=== PATIENT | female | born 1955 | race Caucasian/White ===

== ENCOUNTER 2019-04-15 06:16 | Inpatient (IN) ==
--- NOTE | 2019-03-17 10:15 | Anesthesiology Consultation ---
Date of Service March 17, 2019 Assessment & Plan (1) Encounter for pre-operative examination: Mild aortic stenosis: (MG 11.6mmhg, ERIKA 1.52cm2) per 12/2018 ECHO Chart Review Chart Review: Acceptable Risk for Surgery and Patient seen in Pre Admission Testing Teaching & Discussion Pre-Anesthesia Teaching/Discussion Notes: Instructed NPO after midnight before surgery,except medications with 15 cc of water. Medication instructions provided according to the PAT guidelines. History Surgery Operation Date: 04/15/19 12:30 Proposed Procedures p Left Total Knee Arthroplasty - Abdiaziz Gunn MD Height/Weight Height: 5 ft 6 in Weight: 100.9 kg Allergies Allergy/AdvReac Type Severity Reaction Status Date / Time No Known Allergies Allergy Verified 03/14/19 09:06 Medications Home Medications Medication Instructions Recorded Confirmed Last Taken celecoxib [Celebrex] 200 mg PO QAM 03/14/19 03/14/19 Unknown multivitamin 1 tab PO QAM 03/14/19 03/14/19 Unknown Past Medical History Medical History Anemia HX BLOOD TRANSFUSION 11/2017 (NO DEFINITIVE ETIOLOGY/ NEGATIVE COLONOSCOPY/SUSPECTED NSAID RELATED) Aortic stenosis "Mild" per 12/2018 ECHO (MG 11.6mmhg, ERIKA 1.52cm2) Obesity Osteoarthritis Exercise / Class Metabolic Activity III < 4 Walking/Shop/Light housework Past Surgical History Surgical History History of colonoscopy History of tonsillectomy History of tooth extraction History of tubal ligation Past Anesthesia History No Hx of Anesthesia Complications and No Family Hx of Anesthesia Complications History of PONV No Hx of PONV and No Hx of Motion Sickness Social History Smoking Status: Former smoker tobacco type: cigarettes Smoking cigarettes per day: QUIT 5+ YEARS AGO Do You Dip or Chew Tobacco: No Hx Alcohol Use: Yes alcohol intake frequency: holidays/special occasions only Hx Substance Use: Yes substance use type: does not use Review of Systems Patient denies chest pain, shortness of breath, reflux, cough, wheezing, palpitations. Physical Exam Vital Signs VITALS BP 123/81 P 71 TEMP 97.5 SP02 96%RA RESP 18 PHYSICAL Full neck and c-spine range of motion. Full TMJ range of motion. TMD 2.5 finger breaths Mallampati Score 3 Dentition: full upper dentures, lower missing molars Lungs: clear throughout to auscultation Cardiac: regular rate and rhythm, I/ systolic murmur Spine: normal Carotid arteries: negative bruit Extremities: no edema Testing Laboratory Results 03/17/19 10:48 03/17/19 10:48 PT 9.4 Seconds (9.0-12.0) 03/17/19 10:48 INR 0.9 (0.9-1.1) 03/17/19 10:48 APTT 24.9 Seconds (21.0-31.0) 03/17/19 10:48 Blood Type A Negative 03/17/19 10:48 Antibody Screen NEGATIVE 03/17/19 10:48 Electrocardiogram Date: 03/17/19 SB with sinus arrhythmia at 58bpm. Otherwise "normal." Chest X-Ray Date: 03/17/19 Findings: + NAD Echocardiogram Date: 12/19/18 LVEF 55-60%. Mild aortic stenosis (MG 11.6mmhg, ERIKA 1.52cm2). Mild LAD. Severe mitral annular calcification. Compared to prior study 11/2017, there is "no signi ficant change" per ECHO report.
--- NOTE | 2019-03-17 10:18 | PAT Medication Instructions ---
Medication Instructions Date of Service March 17, 2019 Home Medications celecoxib [Celebrex] 200 mg PO QAM multivitamin 1 tab PO QAM ASK your surgeon for instructions celecoxib [Celebrex] 200 mg PO QAM DO NOT take the morning of surgery multivitamin 1 tab PO QAM Other Notes If you have any questions please call us at [phone] or [phone] or [phone] or [phone]
--- NOTE | 2019-03-17 11:13 | XRay Report ---
XR chest Pre-admission PA/Lat HISTORY: 64 years-old Female pat preoperative exam. No acute chest complaints COMPARISON: None available TECHNIQUE: PA and lateral views of the chest FINDINGS: Cardiomediastinal and hilar silhouettes are within normal limits. No pneumothorax, pleural effusion, focal airspace consolidation or overt pulmonary edema. Degenerative changes of the shoulders and spin e. IMPRESSION: No acute process. The above report was generated using voice recognition software. It may contain grammatical, syntax o r spelling errors. Electronically signed by: Solo Pisano M.D. 03/17/2019 11:12 AM
[2019-03-17 13:20] LABS: Basophils # (auto) 0.03 K/uL (0-0.2); Basophils % (auto) 0.4 %; Eosinophils # (auto) 0.16 K/uL (0-0.5); Eosinophils % (auto) 2.2 %; Hematocrit (blood only) 35.5 % (37-47); Hemoglobin 11.7 g/dL (12.0-16.0); Immature Granulocytes # (auto) 0.01 K/uL (0.00-0.02); Immature Granulocytes % (auto) 0.1 %; Lymphocytes # (auto) 2.15 K/uL (1.2-3.4); Lymphocytes % (auto) 29.5 %; Mean Corpuscular Volume 92.2 fL (80-100); Mean Platelet Volume 10.2 fL (7.4-10.4); Monocytes # (auto) 0.58 K/uL (0.11-0.59); Monocytes % (auto) 7.9 %; Neutrophils # (auto) 4.37 K/uL (1.4-6.5); Neutrophils % (auto) 59.9 %; Platelet Count 350 K/uL (130-400); RDW Coefficient of Variation 14.6 % (11.5-14.5); RDW Standard Deviation 49.5 fL (36.4-46.3); Red Blood Count 3.85 M/uL (4.2-5.4)
[2019-03-17 13:28] LABS: BUN Creatinine Ratio 30.2 (10-20); Calcium 9.1 mg/dl (8.5-10.1); Creatinine Clr Calc Pharmacy 100.4 ml/min; Est GFR (African American) 106.9; Est GFR (Non-African American) 92.2; Potassium 4.2 mmol/L (3.5-5.1)
[2019-03-17 13:31] LABS: INR 0.9 (0.9-1.1); Partial Thromboplastin Ratio 0.9; Partial Thromboplastin Time 24.9 Seconds (21.0-31.0); Prothrombin Time 9.4 Seconds (9.0-12.0)
--- NOTE | 2019-04-12 19:01 | History and Physical Report ---
DATE OF ADMISSION: 04/15/2019 CHIEF COMPLAINT: Left knee pain and discomfort. HISTORY OF PRESENT ILLNESS: The patient is a 64-year-old white female who works for [employer] who presents for surgical treatment of her left knee. She has a history of left knee pain and discomfort that has gradually gotten worse over time. She has seen my partner Dr. Griffith in the past and had several injections which provided some temporary relief only. Most of the pain is in the medial side of the knee. The more she walks, the more it hurts. She has tried to put off surgery as long as possible, but really affecting her lifestyle and she feels she needs to go ahead and get her knee fixed. She takes Celebrex with minimal relief. She has nighttime pain. PAST MEDICAL HISTORY: 1. Heart murmur. 2. Mild obesity, BMI 36. PAST SURGICAL HISTORY: None. ALLERGIES: None. CURRENT MEDICATIONS: Celebrex. SOCIAL HISTORY: A 64-year-old female. She works for [employer]. She does some accounting work. No significant smoking or alcohol intake. FAMILY HISTORY: Noncontributory. REVIEW OF HISTORY: Negative for diabetes, neurologic problem, vascular problem, bleeding disorders. No chest pain or shortness of breath. No history of DVT or PE. No known bleeding problems. PHYSICAL EXAMINATION: GENERAL: Reveals a pleasant, middle-aged female. Looks to be in pretty good health. HEENT: Benign. NECK: Supple, no lymphadenopathy. LUNGS: Clear to auscultation. HEART: Regular rate and rhythm. ABDOMEN: Soft, nontender, nondistended. EXTREMITIES: Grossly neurovascularly intact except as follows. Examination of the left knee and leg reveals patient ambulates independently. She has got varus alignment to her knee with a varus thrust with weightbearing. She has got small knee effusions. She has got bony hypertrophy medially. Moderate soft tissue envelope. Range of motion is 5 degrees short of full extension to 120 degrees of flexion. There is no instability. No pain with hip motion. She is neurologically and vascularly intact. X-RAYS: X-rays of the left knee reviewed. Shows advanced left knee DJD. She has complete loss of medial joint space. She had osteophytes off the medial femoral condyle and medial tibial plateau. She does have significant tricompartmental disease. ASSESSMENT: A 64-year-old white female with advanced left knee degenerative joint disease. She has failed conservative treatment and would like to have her left knee replaced. PLAN: We will take her to the operating room and do a left total hip replacement. The risks and benefits of this procedure were explained to the patient include but not limited to DVT, PE, , infection, neurological injury, vascular injury, bleeding problem, pain, limited range of motion, stiffness, failure to relieve symptoms, incomplete relief of symptoms, need for further surgery in future, fracture, leg length inequality, nerve palsy, need for revision surgery, etc. The patient understands and desires to proceed. Informed consent was obtained. As far as discharge plan, she is hoping to be discharged to home with [facility] home health program.
[~2019-04-15 06:16] MED LIST: ACETAMINOPHEN 500 MG TAB PO SCH; BUPIVACAINE 0.5 % 5 MG/1 ML PF 10ML VIAL ONE; BUPIVACAINE LIPOSOME/PF 266 MG, BUPIVACAINE/EPINEPHRINE 50 ML, SODIUM CHLORIDE 0.9% 30 ... INFIL SCH; BUPIVACAINE/EPINEPHRINE 0.25% 1:200,000 30 ML VIAL ONE; CEFAZOLIN 2000MG 2,000 MG/15 ML SYR IV SCH; DEXAMETHASONE SOD INJ 4 MG/ML VIAL ONE; FAMOTIDINE 20 MG TAB PO SCH; GABAPENTIN 300 MG CAP PO SCH; LR 500ML BOLUS, THEN 15ML/HR IV SCH; LR 60ML/HR IV SCH; METOCLOPRAMIDE HCL 10 MG TABLET PO SCH; SCOPOLAMINE 1.5 MG TDSY TD SCH
[2019-04-15] MEDS ORDERED: TRANEXAMIC ACID 1,000 MG **IV Intra-op IV SCH (06:30)
--- NOTE | 2019-04-15 06:50 | History & Physical Bridge Note ---
Date of Service April 15, 2019 History & Physical Bridge Note I have examined the patient, reviewed the History & Physical and in the interval since the performance of the History & Physical I have noted the following changes of clinical significance: no changes noted Plan is for LEFT TOTAL KNEE ARTHROPLASTY.
[2019-04-15] MEDS ORDERED: fentaNYL citrate 100 MCG/2 ML VIAL ONE ×3 (08:56→11:00)
[2019-04-15] MEDS ORDERED: MIDAZOLAM HCL 1 MG/ML 2ML VIAL ONE ×2 (08:56→09:32)
[2019-04-15] MEDS ORDERED: SODIUM CHLORIDE 0.9% PF 50 ML VIAL ONE (09:10)
[2019-04-15] MEDS ORDERED: BUPIVACAINE LIPOSOME 1.3% 266 MG/20 ML VIAL ONE (09:10)
[2019-04-15] MEDS ORDERED: BACITRACIN INJ 50,000 UNIT VIAL ONE (09:10)
[2019-04-15] MEDS ORDERED: BUPIVACAINE 0.25% 30 ML VIAL ONE (09:12)
[2019-04-15] MEDS ORDERED: EPINEPHrine INJ 1 MG/ML AMP ONE (09:13)
[2019-04-15] MEDS ORDERED: ONDANSETRON INJ 2 MG/ML 2 ML VIAL IV PRN ×2 (09:24→12:04)
[2019-04-15] MEDS ORDERED: ePHEDrine sulfate 50 MG/ML AMP IV PRN (09:24)
[2019-04-15] MEDS ORDERED: fentaNYL citrate 100 MCG/2 ML VIAL IV PRN (09:24)
[2019-04-15] MEDS ORDERED: ATROPINE SULFATE 0.1 MG/ML 10ML SYR IV PRN (09:24)
[2019-04-15] MEDS ORDERED: LIDOCAINE HCL 2% 2 ML VIAL/AMP(20MG/ML) INFIL ONE (10:19)
[2019-04-15] MEDS ORDERED: LABETALOL HCL IV 5 MG/ML 20ML IV ONE (10:20)
[2019-04-15] MEDS ORDERED: ONDANSETRON INJ 2 MG/ML 2 ML VIAL ONE (10:20)
[2019-04-15] MEDS ORDERED: PROPOFOL IV EMULSION 10 MG/ML 20 ML VIAL IV ONE (10:20)
--- NOTE | 2019-04-15 11:04 | Post Operative Brief Note ---
PG Immediate Post Op with CF Date of Surgery April 15, 2019 Pre & Post Diagnosis Operation Date: 04/15/19 08:50 Pre-Op Diagnosis: LEFT KNEE DEGENERATIVE JOINT DISEASE W/KNEE PAIN Post-Op Diagnosis: LEFT KNEE DEGENERATIVE JOINT DISEASE W/KNEE PAIN Procedure Operation Date: 04/15/19 08:50 Actual Procedures p Left Total Knee Replacement(Left) - Abdiaziz Gunn MD Surgeon Abdiaziz Gunn MD Director [employer] Maria Teresa, PAC Estimated Blood Loss 50 Findings Consistent with Post-Op Diagnosis Fluids 1500 cc Specimens Specimen Description: Permanent specimen A: left knee bone and tissue Drains Mcpherson Catheter (16fr mcpherson catheter placed by Sasha Morel PA-C, without diffi culty; mcpherson demonstrates clear yellow urine. Output measured and recorded by anesthesia.) Anesthesia Type Spinal MAC Complications none Disposition Accompanied Patient To Recovery: No Disposition: Recovery Room
[2019-04-15] MEDS ORDERED: METOPROLOL TARTRATE 1 MG/ML VIAL IV ONE (11:05)
--- NOTE | 2019-04-15 11:22 | XRay Report ---
LEFT KNEE 2 VIEWS History: Left total knee arthroplasty. Degenerative arthritis. Postop. FINDINGS: The patient is status post a left total knee arthroplasty. The hardware is intact. No fract ure or dislocation. Skin fox in place. IMPRESSION: Left total knee arthroplasty. No evidence for hardware complication. Electronically signed by: Nathan Galloway M.D. 04/15/2019 11:21 AM
--- NOTE | 2019-04-15 11:46 | Anesthesiology Progress Note ---
Date of Service April 15, 2019 Anesthesia Post Procedure Vital Signs Vital Signs: Temp Pulse Resp BP Pulse Ox 04/15/19 11:45 36.5 C 73 15 150/70 H 94 04/15/19 11:30 67 15 140/76 95 04/15/19 11:20 79 15 140/88 99 04/15/19 11:10 36.8 C 82 15 160/90 H 98 04/15/19 06:43 36.6 C 81 20 191/91 H 95 Transfer of Care Handoff Completed per policy Notes Mental Status: alert / awake / arousable Patient Amnestic to Procedure: Yes Nausea / Vomiting: adequately controlled Pain: adequately controlled Airway Patency, RR, SpO2: stable & adequate BP & HR: stable & adequate Hydration State: stable & adequate Anesthetic Complications: no major complications apparent
[2019-04-15] MEDS ORDERED: BISACODYL 10 MG SUPP PR PRN (12:04)
[2019-04-15] MEDS ORDERED: MAGNESIUM HYDROXIDE SUSP 30 ML UDC PO PRN (12:04)
[2019-04-15] MEDS ORDERED: NALOXONE HCL 0.4 MG/1 ML VIAL/CARP IV PRN (12:04)
[2019-04-15] MEDS ORDERED: SODIUM CHLORIDE 0.9% 1000ML 1,000 ML IV SCH (12:04)
[2019-04-15] MEDS ORDERED: HYDROmorphone INJ 0.5 MG/0.5 ML SYR IV PRN (12:04)
[2019-04-15] MEDS ORDERED: METOCLOPRAMIDE HCL INJ 5 MG/ML 2 ML VIAL IV PRN (12:04)
[2019-04-15] MEDS ORDERED: ALUMINUM/MAGNESIUM SUSP 30 ML UDC PO PRN (12:04)
[2019-04-15] MEDS: KETOROLAC TROMETHAMINE 15 MG/ML VIAL IV SCH ×3 (13:07→23:24)
--- NOTE | 2019-04-15 14:05 | Progress Note ---
DATE: 04/15/2019 SUBJECTIVE: A 64-year-old white female postop from a left knee replacement. She is doing well. Feeling a little bit groggy. No chest pain or shortness of breath. No significant knee pain. Not feeling dizzy or lightheaded. OBJECTIVE: VITAL SIGNS: Temperature 36.4. Vital signs stable. GENERAL: Physical examination shows a pleasant, middle-aged female. She is lying in bed and talking to her . She is intermittently dozing off. LUNGS: Clear to auscultation. HEART: Regular rate and rhythm. ABDOMEN: Soft, nontender, nondistended. EXTREMITIES: Grossly neurovascularly intact except as follows: Examination of the left lower extremity reveals the leg to be well aligned. Dressing is clean, dry and intact. She can dorsiflex and plantarflex her foot appropriately. She got good distal pulse with brisk refill. X-RAYS: X-rays of the left knee from recovery room reviewed. It shows left cemented posterior stabilized total knee arthroplasty. Components looked to be in good position. No signs of problems. ASSESSMENT: A 64-year-old white female postop from a left knee replacement, doing well. Pain is controlled. She is neurologically intact. PLAN: 1. DVT prophylaxis including thigh-high TEDs, SCDs, and aspirin twice a day. 2. PT/OT. Weight bear as tolerated. Left total knee protocol. 3. Pain control, doing well with current pain regimen. 4. IV antibiotics x24 hours. 5. Disposition: Plan to discharge to home with some home health once adequately recovered and medically stable.
[2019-04-15] MEDS: ACETAMINOPHEN 500 MG TAB PO SCH ×2 (14:18→21:42)
[2019-04-15] MEDS: CHECK SCOPOLAMINE PATCH PLACEMENT SCH ×2 (16:04→23:25)
[2019-04-15] MEDS: ASCORBIC ACID 500 MG TAB PO SCH (16:21)
[2019-04-15] MEDS: FERROUS GLUCONATE 324 MG TAB PO SCH (16:21)
[2019-04-15] MEDS ORDERED: TRANEXAMIC ACID 1,000 MG in 0.9 % SODIUM CHLORIDE 100 ML IV SCH (17:00)
[2019-04-15] MEDS: CEFAZOLIN 2000MG 2,000 MG/15 ML SYR IV SCH (17:29)
[2019-04-15] MEDS: TRAMADOL HCL 50 MG TABLET PO PRN (17:41)
--- NOTE | 2019-04-15 21:24 | Operative Report ---
DATE OF OPERATION: 04/15/2019 SURGEON: Abdiaziz Gunn MD BURNING SUPERVISOR: JULIA Raygoza PREOPERATIVE DIAGNOSIS: Left knee degenerative joint disease. POSTOPERATIVE DIAGNOSIS: Left knee degenerative joint disease. PROCEDURE PERFORMED: Left cemented posterior stabilized total knee arthroplasty. COMPLICATIONS: None. ESTIMATED BLOOD LOSS: 50 mL. FLUID REPLACEMENT: 1500 mL crystalloid fluid replacement. ANESTHESIA: Spinal with adductor canal block. DRAINS: None. SPECIMENS: Left knee sent for pathology. TOURNIQUET TIME: 57 minutes at 300 mmHg. OPERATIVE INDICATIONS: The patient is a 64-year-old fairly active female who has had a several year history of increasing left knee pain and discomfort. It became less responsive to conservative treatment. She has tried to put off a knee replacement as long as possible. It is really affecting her quality of life and she elected to proceed with total knee arthroplasty. OPERATIVE FINDINGS: Operative findings revealed advanced left knee tricompartment DJD with extensive grade 4 changes in the medial femoral condyle and medial tibial plateau with eburnation and a fairly gross grade 4 changes in the patellofemoral as well as the lateral compartment. She had osteophytes in all 3 compartments. OPERATIVE IMPLANTS: Operative implants consists of 1. Biomet Vanguard size 65 left posterior stabilized femoral component. 2. Biomet size 71 tibial tray. 3. A 10 mm posterior stabilized polyethylene insert. 4. A 31 x 8 all poly patella. OPERATIVE PROCEDURE: The patient was taken to the operating room, identified and placed on the operating table in supine position. All contact areas were appropriately padded. IV antibiotics provided by anesthesia team. Spinal anesthetic and adductor canal block had been provided in the holding area. Roman catheter was placed in sterile fashion. Left thigh tourniquet was then placed and left lower extremity was then prepped and draped in usual sterile fashion. Left leg was elevated and exsanguinated with Esmarch and tourniquet was placed at 300 mmHg. An anterior approach to the left knee was then performed through a longitudinal incision centered over the patella. Sharp dissection was carried through subcutaneous tissue down to the level of the extensor mechanism. Medial parapatellar arthrotomy incision was made. Some subperiosteal dissection was carried out medially. Fat pad resected from beneath the patellar tendon. The lateral patellofemoral ligament was released. The patella was subluxated laterally and the knee was flexed. The osteophytes were taken off the distal femur. The ACL and PCL were then released from distal femur and the tibia subluxated anteriorly. The external tibial alignment jig was then placed in the anterior face of the tibia and adjusted to 14 mm medially. Proximal tibial cut was made to remove about a millimeter of bone from the most deficient aspect of the medial tibial plateau. Some osteophytes were taken off medial and posteromedially. Tibia sized to a size 71. Attention was then drawn to the femur. The distal femur was entered with a sharp drill bit. Intramedullary canal was suctioned. A left 5-degree valgus cutting guide was placed. Distal femoral cutting block was pinned in place. Distal femoral cut was made to take an additional 3 mm of bone off the distal femur. She did have a flexion contracture preoperatively. The femur was then sized to a size 65. We did downsize this slightly. The AP cutting block was pinned parallel to the epicondylar axis, which was 5 degrees of external rotation. The anterior cut, anterior chamfer cut, posterior cut, posterior chamfer cuts were made. Box cutting guide was placed and adjusted slightly lateral and box cut was made. The knee was flexed. The remnants of the medial and lateral menisci were excised. The osteophytes were taken off the posterior aspect of the femur. Trial femoral component was placed. Tibial tray was pinned in maximum external rotation and drill and stem punch were used to create defect in proximal tibia for the tibial tray. The knee was then trialed and a 10 mm insert fit most appropriately. There was some slight laxity, but I wanted to leave a little loose as she had a significant flexion contracture preoperatively. Attention was then drawn to the patella. The patella was cleaned of all soft tissues. Patella thickness measured 24 mm in thickness, cut down to about 13. It was sized to a size 31 patella. Lug holes were drilled for 31 patella. The lateral osteophyte was removed. Patella button was placed. Knee was taken through range of motion, patella tracked nicely with no thumbs test. Attention was then drawn toward placement of permanent components. All trial components were removed. Bone plug was placed in the distal femur to limit blood loss. A double batch of Palacos G cement was mixed. [employer] size 65 left posterior stabilized femoral component, size 71 tibial tray, 10 mm posterior stabilized polyethylene insert, and a 31 x 8 all poly patella then cemented in place. Knee was brought into full extension until cement hardened. A final cement check was then performed. Pericapsular tissues were injected with a total of 100 mL of combination of 20 mL of Exparel, 30 mL of normal saline, 50 mL 0.25% Marcaine with epinephrine. The patient did receive 1 gram of tranexamic acid. The tourniquet was let down for final tourniquet time of 57 minutes. Hemostasis was assured with use of electrocautery. Extensor mechanism was then closed with combination of #1 PDS suture and #1 Vicryl suture in a [id number] fashion. Extensor mechanism was checked and found to be intact. The subcutaneous tissue was then closed with #2 Dexon suture in a buried interrupted fashion. Skin was closed with skin fox. Leg was then cleaned, dried and a sterile dressing of Xeroform, 4 x 4, sterile cast padding and Paul bandage were applied. The patient then transferred to the recovery room in stable condition. The patient tolerated the procedure well with no complications. All needle and sponge counts were correct at the end of the operation. I attest to the content of the Intraoperative Record and any orders documented therein. Any exception s are noted below.
[2019-04-15] MEDS: ASPIRIN 81 MG ECTAB PO SCH (21:43)
[2019-04-15] MEDS: DOCUSATE SODIUM 100 MG CAP PO SCH (21:43)
[2019-04-15] MEDS: SENNA 8.6 MG TAB PO SCH (21:43)
[2019-04-16] MEDS: CEFAZOLIN 2000MG 2,000 MG/15 ML SYR IV SCH (02:49)
[2019-04-16] MEDS: ACETAMINOPHEN 500 MG TAB PO SCH ×3 (05:22→21:33)
[2019-04-16] MEDS: KETOROLAC TROMETHAMINE 15 MG/ML VIAL IV SCH ×4 (05:23→19:07)
[2019-04-16 07:07] LABS: Hematocrit (blood only) 30.8 % (37-47); Hemoglobin 10.2 g/dL (12.0-16.0); Mean Corpuscular Hgb Conc 33.1 g/dL (32-36); Mean Corpuscular Volume 91.7 fL (80-100); Mean Platelet Volume 9.5 fL (7.4-10.4); Platelet Count 317 K/uL (130-400); RDW Standard Deviation 46.6 fL (36.4-46.3); Red Blood Count 3.36 M/uL (4.2-5.4); White Blood Count 12.01 K/uL (4.8-10.8)
[2019-04-16 07:39] LABS: BUN Creatinine Ratio 21.8 (10-20); Calcium 8.9 mg/dl (8.5-10.1); Creatinine Clr Calc Pharmacy 86.5 ml/min; Est GFR (African American) 93.9; Potassium 4.2 mmol/L (3.5-5.1)
[2019-04-16] MEDS ORDERED: MULTIVITAMIN TAB PO SCH (09:00)
[2019-04-16] MEDS: ASPIRIN 81 MG ECTAB PO SCH ×2 (09:47→21:33)
[2019-04-16] MEDS: DOCUSATE SODIUM 100 MG CAP PO SCH ×2 (09:47→21:33)
[2019-04-16] MEDS: ASCORBIC ACID 500 MG TAB PO SCH ×2 (09:47→19:07)
[2019-04-16] MEDS: FERROUS GLUCONATE 324 MG TAB PO SCH ×2 (09:48→19:07)
[2019-04-16] MEDS: MULTIVITAMIN TAB PO SCH (09:48)
--- NOTE | 2019-04-16 09:57 | Anesthesiology Progress Note ---
Date of Service April 16, 2019 Anesthesia Post Procedure Vital Signs Vital Signs: Temp Pulse Pulse Resp BP Pulse Ox 04/16/19 07:29 36.6 C 61 18 147/77 H 94 04/16/19 03:03 36.5 C 60 14 124/64 96 04/15/19 23:13 36.5 C 59 L 14 126/62 97 04/15/19 19:09 36.4 C L 64 16 137/70 95 04/15/19 14:50 70 18 142/72 H 95 04/15/19 13:52 36.4 C L 66 17 146/70 H 97 04/15/19 12:57 36.4 C L 70 18 144/78 H 93 04/15/19 12:24 36.4 C L 69 71 H 133/77 94 04/15/19 11:50 36.7 C 72 16 121/72 94 04/15/19 11:45 36.5 C 73 15 150/70 H 94 04/15/19 11:30 67 15 140/76 95 04/15/19 11:20 79 15 140/88 99 04/15/19 11:10 36.8 C 82 15 160/90 H 98 Notes Mental Status: alert / awake / arousable and participated in evaluation Nausea / Vomiting: adequately controlled Pain: adequately controlled Airway Patency, RR, SpO2: stable & adequate BP & HR: stable & adequate Hydration State: stable & adequate Neuraxial Anesthesia: sensory block resolved
[2019-04-16] MEDS: TRAMADOL HCL 50 MG TABLET PO PRN ×2 (12:56→21:36)
--- NOTE | 2019-04-16 14:00 | Progress Note ---
DATE: 04/16/2019 SUBJECTIVE: A 64-year-old white female postop day 1 from a left knee replacement. She is doing pretty well. Quite a bit more painful after therapy. Denies any chest pain or shortness of breath. Not feeling dizzy or lightheaded. OBJECTIVE: VITAL SIGNS: Temperature 36.9. Vital signs stable. GENERAL: Physical examination shows a pleasant, middle-aged female. She is sitting up in her bedside with her legs dangling and looks pretty comfortable. EXTREMITIES: Examination of the left leg reveals the dressing to be clean, dry and intact. She can dorsiflex and plantarflex her foot appropriately. She is neurologically intact. LABORATORY DATA: Hemoglobin 10.2. Hematocrit 30.8. Electrolytes are stable. ASSESSMENT: A 64-year-old white female postop day 1 from a left knee replacement, doing okay. A bit more pain after therapy, but nothing unexpected. She is neurologically intact. PLAN: 1. DVT prophylaxis including thigh-high TEDs, SCDs, and aspirin twice a day. 2. PT/OT. Weightbear as tolerated. Left total knee protocol. 3. Pain control, doing well with current pain regimen. 4. Disposition: Plan to discharge to home with some home health once adequately recovered and medically stable.
[2019-04-16] MEDS: SENNA 8.6 MG TAB PO SCH (21:33)
[2019-04-17] MEDS: KETOROLAC TROMETHAMINE 15 MG/ML VIAL IV SCH ×2 (00:15→05:48)
[2019-04-17] MEDS: ACETAMINOPHEN 500 MG TAB PO SCH (05:48)
[2019-04-17] MEDS: ASCORBIC ACID 500 MG TAB PO SCH (07:27)
[2019-04-17] MEDS: MULTIVITAMIN TAB PO SCH (07:28)
[2019-04-17] MEDS: ASPIRIN 81 MG ECTAB PO SCH (07:28)
[2019-04-17] MEDS: DOCUSATE SODIUM 100 MG CAP PO SCH (07:28)
[2019-04-17] MEDS: FERROUS GLUCONATE 324 MG TAB PO SCH (07:28)
[2019-04-17] MEDS: TRAMADOL HCL 50 MG TABLET PO PRN (07:29)
--- NOTE | 2019-04-17 09:05 | Progress Note ---
DATE: 04/17/2019 SUBJECTIVE: A 64-year-old white female postop day 2 from a left knee replacement. She is doing okay. Still having quite a bit of pain. Denies any chest pain or shortness of breath. Not feeling dizzy or lightheaded. OBJECTIVE: VITAL SIGNS: Temperature 36.7. Vital signs stable. GENERAL: Shows a pleasant, middle-aged female. She is sitting up in bed, looks reasonably comfortable. EXTREMITIES: Examination of the left leg reveals the leg to be well aligned. Dressing is clean, dry and intact. Calf is soft and supple. She is neurologically intact. ASSESSMENT AND PLAN: 1. A 64-year-old white female postop day 2 from a left knee replacement, doing pretty well. Pain is reasonably well controlled. Nothing out of the ordinary. 2. PT/OT. Weight bear as tolerated. Left total knee protocol. 3. Pain control, doing okay with current pain regimen. 4. Disposition: Plan to discharge to home with some home health later today.
--- NOTE | 2019-04-22 07:09 | Discharge Summary ---
ADMITTING PHYSICIAN AND SURGEON: Dr. Abdiaziz Gunn. ADMITTING DIAGNOSIS: Left knee degenerative joint disease. SURGERY PERFORMED: Left total knee arthroplasty. SECONDARY DIAGNOSES: Heart murmur, mild obesity. CONSULTS: None obtained. HISTORY AND PHYSICAL EXAMINATION: Well documented in the patient's chart. HOSPITAL COURSE: The patient was admitted on 04/15/2019, underwent total knee arthroplasty, tolerated the procedure well. There were no complications. She was transferred to the PACU postoperatively and later to the orthopedic floor for further care. She was given Ancef for antibiotic prophylaxis, LACEY stockings, SCDs and aspirin for DVT prophylaxis. Hemoglobin, hematocrit and vital signs were monitored during her hospital stay and remained stable. She did not require any blood transfusions. By postoperative day 2, she was tolerating a regular diet, pain was reasonably controlled with oral pain medicine. She was participating in physical therapy. On postoperative day 2, she was discharged home, set up with home health services. She was given printed discharge instructions as well as new prescriptions for extra-strength Tylenol, aspirin, iron supplement and tramadol. Continue her home medicines. Continue physical therapy, weightbearing as tolerated, LACEY stockings. Follow up approximately 2 weeks postop or sooner if there are any problems or concerns.
== END 2019-04-17 10:47 | disposition home health service (06) | DRG 470 ==
LOC: ASU 06:16 → 3E 11:08

== ENCOUNTER 2023-04-17 08:27 | Observation (INO) ==
--- NOTE | 2023-03-12 14:52 | PAT Medication Instructions ---
Medication Instructions Date of Service March 12, 2023 Home Medications multivitamin 1 tab PO QAM DO NOT take the morning of surgery multivitamin 1 tab PO QAM Other Notes NOTHING TO EAT OR DRINK AFTER MIDNIGHT. If you have any questions please call us at [phone] or [phone] or [phone] or [phone]
--- NOTE | 2023-03-19 11:02 | Anesthesiology Consultation ---
Date of Service March 19, 2023 Assessment & Plan (1) Encounter for pre-operative examination: Chart Review Chart Review: Acceptable Risk for Surgery (pending updated ECHO from [facility] ) and Patient seen in Pre Admission Testing - Please obtain most ECHO (gets yearly ECHO with PCP at [facility]) Hx of aortic stenosis Pt currently scheduled as 23 hours observation. If surgeon decides to change patient to [facility], patient would be acceptable risk for TKA, pending patient is motivated, has good support and surgeon's office completes [facility] preop requirements. Per PAT appt on 03/19/23, patient denies any recent travel or large group activities. Pt is vaccinated for Covid. Will leave to surgeon's discretion if preop Covid testing needed. Educated on importance of using Covid precautions one week prior to surgery Teaching & Discussion Pre-Anesthesia Teaching/Discussion Notes: Instructed NPO after midnight before surgery,except medications with 15 cc of water. Medication instructions provided according to the PAT guidelines. History Surgery Operation Date: 04/17/23 08:50 Proposed Procedures p Right Total Knee Arthroplasty - Abdiaziz Gunn MD Height/Weight Height: 5 ft 6 in Weight: 95.7 kg Allergies Allergy/AdvReac Type Severity Reaction Status Date / Time No Known Allergies Allergy Verified 03/07/23 09:08 Medications Home Medications Medication Instructions Recorded Confirmed Last Taken multivitamin 1 tab PO QAM 03/14/19 03/07/23 04/14/19 09:00 Past Medical History Medical History (Updated 03/19/23 @ 11:14 by Lucila Medina PA-C) Anemia History of Hx of blood transfusion 11/2017 (no definitive etiology- negative colonoscopy- felt NSAID related Aortic stenosis "Mild" per 12/2018 ECHO (MG 11.6mmhg, ERIKA 1.52cm2) Gets ECHO routinely with PCP at [facility] Obesity Osteoarthritis Exercise / Class Metabolic Activity II 4-5 Yardwork/Stairs/Walk up hill (one flight of stairs - no chest pain or SOB ) Past Family History Family History Other No family history of adverse response to anesthesia Past Surgical History Surgical History History of colonoscopy History of left knee replacement History of tonsillectomy History of tooth extraction History of tubal ligation Past Anesthesia History No Hx of Anesthesia Complications and No Family Hx of Anesthesia Complications History of PONV No Hx of PONV and No Hx of Motion Sickness Social History Smoking Status: Former smoker tobacco type: cigarettes Smoking cigarettes per day: 10 years ago Do You Dip or Chew Tobacco: No Hx Alcohol Use: Yes alcohol intake frequency: holidays/special occasions only Hx Substance Use: No substance use type: does not use Review of Systems Patient denies chest pain, shortness of breath, dyspnea on exertion, reflux, cough, wheezing, palpitations. No hx of seizures, stroke, SD, apnea/snoring. No hx of blood clots. Physical Exam Vital Signs VITALS BP 147/85 P 76 TEMP 97.6 SP02 95% RESP 16 Constitutional no acute distress ENMT Mouth: no TMJ clicking Thyromental Distance: > or= 3.5 Finger Breadths (3.5) Mallampati Class: I Missing molars Neck + short neck and + limited neck extension (minimal ) Respiratory normal respiratory effort; no respiratory distress Auscultation: lungs clear to auscultation bilaterally and + diminished lung sounds (mildly throughout); no wheezes Cardiovascular Rate/Rhythm: regular rate and regular rhythm Heart Sounds: no murmur (no significant murmur noted ) Vessels: no carotid bruit Musculoskeletal Spine: no pain with cervical ROM Extremities: extremities normal to inspection Psychiatric Orientation: alert Lab Results Anesthesia Preop Results Results Anesthesia Widget: WBC 7.06 K/ul (4.8-10.8) 03/19/23 Hgb 12.2 g/dl (12.0-16.0) 03/19/23 Hct 36.7 % (37.0-47.0) L 03/19/23 Plt 366 K/uL (130-400) 03/19/23 Na 138 mmol/L (136-145) 03/19/23 K 4.3 mmol/L (3.5-5.1) 03/19/23 Cl 104 mmol/L (98-107) 03/19/23 CO2 30 mmol/L (21-32) 03/19/23 BUN 20 mg/dl (6-23) 03/19/23 Creat 0.61 mg/dl (0.6-1.2) 03/19/23 Glucose Level 92 mg/dl (70-99(Fasting)) 03/19/23 PT 9.9 Seconds (9.0-12.0) 03/19/23 PTT 26.1 Seconds (21.0-31.0) 03/19/23 INR 0.9 (0.9-1.1) 03/19/23 Blood Type A Negative 03/19/23 Antibody Screen NEGATIVE 03/19/23 Testing Electrocardiogram Date: 03/19/23 Findings: + NSR @ (73bpm ) Normal EKG per cardio Chest X-Ray Date: 03/19/23 Findings: + NAD COVID-19 Risk Screen Screening Information COVID-19 Screen Date: 03/19/23 Exposure 21 Days Family/Household +COVID Last 21 Days: No Exposure 10 Days Any COVID Exposure Last 10 Days: No Symptoms Last 10 Days Experienced COVID Sx Last 10 Days: No + COVID 0-90 Days COVID + in Last 0-90 Days: No Risk Plan COVID Risk Plan: No Risk Identified Patient Education COVID Preop Screening Education Complete: Yes
--- NOTE | 2023-04-14 09:24 | History & Physical Report ---
Date of Service April 14, 2023 Assessment & Plan (1) Right knee DJD: 68-year-old female now 4 years out from a left knee replacement with advanced right knee DJD. She has failed conservative treatment. Very happy with the left knee would like her right knee replaced. Plan is to proceed with a right knee replacement. The right cementless procedure explained the patient clued but not limited to DVT PE infection neurological and vascular bleeding palm pain limb range of motion test is fairly of symptoms incomplete relief. Need for further surgery in future exceptor. The patient understands and desires to proceed. Informed consent was obtained. As far as DVT prophylaxis we will plan on thigh-high teds, SCDs, baby aspirin twice a day. She is going to have home health come in and her can assist in her care. (2) History of left knee replacement: History of Present Illness Chief Complaint: . Persistent right knee pain and discomfort. Primary Care Provider: Jenniefr Astorga DO . Patient is a 68-year-old quite healthy female who presents for follow-up of her right knee. Is got a long history of knee problems and had her left knee replaced done by myself about 4 years ago. She is done well from this. She continues to be bothered by right knee pain discomfort. Mostly medial pain. Which she been through extensive conservative treatment including medicines as well as injections. The last shot really did not help much at all. Did not like to have her knee fixed. The pain is medial. Increased with weightbearing. Is affecting her quality life and ability to be active. Allergies Allergy/AdvReac Type Severity Reaction Status Date / Time No Known Allergies Allergy Verified 03/07/23 09:08 Home Medications Medication Instructions Recorded Confirmed Type multivitamin 1 tab PO QAM 03/14/19 03/07/23 History Past Med/Surg History Medical History Anemia History of Hx of blood transfusion 11/2017 (no definitive etiology- negative colonoscopy- felt NSAID related Aortic stenosis "Mild" per 12/2018 ECHO (MG 11.6mmhg, ERIKA 1.52cm2) Gets ECHO routinely with PCP at [facility] Obesity Osteoarthritis Surgical History History of colonoscopy History of left knee replacement History of tonsillectomy History of tooth extraction History of tubal ligation Family History Other No family history of adverse response to anesthesia Social History Smoking Status: Former smoker Cigarettes Per Day: 10 years ago; Second Hand Exposure: No; Do You Dip or Chew Tobacco: No; Hx Alcohol Use: Yes Hx Substance Use: No Preferred Language: Chilean Communication Ability: Effective Bulk Mail Technician Required: No Beliefs That Will Affect Care: None Current Living Situation: Spouse Feels Safe at Home: Yes Assistive Devices: Denture - Upper and Glasses Review of Systems All systems reviewed & are unremarkable except as noted in HPI & below. Physical Exam . Physical examination of the right knee reveals patient ambulates with little bit of a limp he is got varus alignment to her knee. She is tender over the medial joint line. Small knee effusion. Range of motion about 5-1 20. There is no instability. No particular pain with hip motion. Examination of the left knee reveals a well-healed incision. Knee alignment is anatomic. Range of motion 0-1 20. No swelling. Constitutional WD/WN, vitals as above Neck trachea midline, no thyromegaly Respiratory normal respiratory effort, lungs clear to auscultation Cardiovascular RRR, no murmur, no edema Gastrointestinal (Abdomen) normal bowel sounds, soft, nontender, no hepatosplenomegaly Results & Data Results & Data Laboratory Results . Diagnostic Findings . 4 view knee series of the right knee was reviewed. Shows advanced medial compartment arthritis. She got complete loss of medial joint space. Is got osteophytes in all 3 compartments for the left knee replaced looks to be in good position without problems. PG Care Time/CCT Total # of Minutes Spent Total Time Spent with Patient: Total time spent is greater than 50% in coordination of care (as documented) at patient's floor/unit and/or counseling patient: Coding Level of Care Code None Diagnoses Right knee DJD M17.11 History of left knee replacement Z96.652
[~2023-04-17 08:27] MED LIST changes: -BUPIVACAINE 0.5 % 5 MG/1 ML PF 10ML VIAL ONE; -BUPIVACAINE LIPOSOME/PF 266 MG, BUPIVACAINE/EPINEPHRINE 50 ML, SODIUM CHLORIDE 0.9% 30 ... INFIL SCH; +BUPIVACAINE LIPOSOME/PF 266 MG, BUPIVACAINE/EPINEPHRINE 50 ML, SODIUM CHLORIDE 0.9% PF ... INFIL SCH; -BUPIVACAINE/EPINEPHRINE 0.25% 1:200,000 30 ML VIAL ONE; -CEFAZOLIN 2000MG 2,000 MG/15 ML SYR IV SCH; +CeleBREX 200 MG CAP PO SCH; -DEXAMETHASONE SOD INJ 4 MG/ML VIAL ONE; -GABAPENTIN 300 MG CAP PO SCH; +ROPIVACAINE 0.5% 5 MG/ML 30 ML VIAL ONE; -SCOPOLAMINE 1.5 MG TDSY TD SCH; +Scopolamine 1 MG TDSY TD SCH; +TRANEXAMIC ACID 1,000 MG **IV Intra-op IV SCH; +ceFAZolin 2000MG 2,000 MG/15 ML SYR IV SCH; +dexAMETHasone**PF** 10 MG/ML VIAL IV SCH
--- NOTE | 2023-04-17 08:45 | History & Physical Bridge Note ---
Date of Service April 17, 2023 History & Physical Bridge Note I have examined the patient, reviewed the History & Physical and in the interval since the performance of the History & Physical I have noted the following changes of clinical significance: no changes noted
[2023-04-17] MEDS ORDERED: ePHEDrine sulfate 50 MG/ML AMP IV PRN (09:23)
[2023-04-17] MEDS ORDERED: ATROPINE SULFATE 0.1 MG/ML 10ML SYR IV PRN (09:23)
[2023-04-17] MEDS ORDERED: fentaNYL citrate PF 100 MCG/2 ML VIAL IV PRN (09:23)
[2023-04-17] MEDS ORDERED: HYDROmorphone INJ 2 MG/ML SYR/VIAL IV PRN (09:23)
[2023-04-17] MEDS ORDERED: ONDANSETRON INJ 2 MG/ML 2 ML VIAL IV PRN ×2 (09:23→14:25)
[2023-04-17] MEDS ORDERED: MIDAZOLAM HCL 1 MG/ML 2ML VIAL ONE (09:25)
[2023-04-17] MEDS ORDERED: BUPIVACAINE/EPINEPHRINE 0.25% 1:200,000 30 ML VIAL ONE (10:47)
[2023-04-17] MEDS ORDERED: SODIUM CHLORIDE 0.9% PF 50 ML VIAL ONE (10:47)
[2023-04-17] MEDS ORDERED: BUPIVACAINE LIPOSOME 1.3% 266 MG/20 ML VIAL ONE (10:47)
[2023-04-17] MEDS ORDERED: fentaNYL citrate PF 100 MCG/2 ML VIAL ONE (11:28)
--- NOTE | 2023-04-17 12:53 | Operative Report ---
PG Post Operative Report Pre & Post Diagnosis Operation Date: 04/17/23 10:20 Pre-Op Diagnosis: Right Knee Advanced Degenerative Joint Disease Post-Op Diagnosis: Right Knee Advanced Degenerative Joint Disease I identified the patient and participated in the time-out.: Yes Procedure Operation Date: 04/17/23 10:20 Actual Procedures p Right Total Knee Arthroplasty(Right) - Abdiaziz Gunn MD Surgeon Abdiaziz Gunn MD Pearl Stringer Brijesh Morel PA-C Estimated Blood Loss 50 Findings Consistent with Post-Op Diagnosis Operative findings were advanced right knee tricompartment DJD. She had extensive grade 4 [id number] disease of the medial and patellofemoral compartments. Less severe but spotty changes laterally. Moderate-sized joint effusion. Fixed varus deformity to her knee with a slight flexion contracture. Specimens Right knee sent for pathology Anesthesia Type Spinal MAC Complications none Disposition Accompanied Patient To Recovery: No Indications Patient is a 68-year-old female is had a long history of bilateral knee pain discomfort describes gotten worse over time. She she had left knee replacement 4 years ago and done well with that. She continues bothered by right knee pain and discomfort. She failed conservative measures. She would like proceed with right total knee arthroplasty. Description of Procedure Operative implants consist of: 1. Biomet Vanguard size 70 right posterior stabilized femoral component. 2. Biomet size 71 tibial tray. 3. 10 mm posterior stabilized polyethylene insert. 4. 31 x 8 all poly patella. The patient was taken the operating, identified, and placed on the operating table supine position. All contact areas were appropriately padded. IV antibiotics tried by anesthesia team. A spinal anesthetic and abductor canal block had been provided in the holding area. Roman catheter was placed in sterile fashion. Right Tetrick was then placed in the right lower extremities and prepped and draped in usual sterile fashion. The right leg was elevated exsanguinated with use of an Esmarch and the turn was placed at 300 mmHg. An anterior approach of the right knee was then performed to longitudinal incision centered over the patella. Sharp dissection was carried through subcutaneous tissue down the extensor mechanism. A medial parapatellar arthrotomy incision was made. Some subperiosteal dissection was carried out medially. The fat pad was dissected from Neath patella tendon. Lateral patellofemoral ligament was released. Patella subluxated laterally and the knee was flexed. The osteophytes taken on distal femur. The ACL and PCL were then released from distal femur and the tibia subluxated anteriorly. The external tibial alignment jig was then placed in the interface the tibia and adjusted 14 mm medially. Proximal tibial cut was made to remove millimeter or 2 of bone from the medial side. It tibia sized to a size 71. Attention drawn the femur. The distal femur examined the sharp drill. Intramedullary canal was suction. A right 5 degree valgus cutting guide was placed. This femoral cutting block was pinned in place. Distal femoral cut was made to take an additional 3 mm of bone off distal femur. The femur was then sized to a size 70. The AP cutting block was pinned parallel to the epicondylar axis which was 4 degrees of external rotation. The anterior cut, anterior chamfer, posterior cut, posterior chamfer cuts were made. The box cutting guide was placed in just slight lateral and the box cut was made. The knee was flexed. The remnants of the medial lateral menisci were excised. The osteophytes were taken off the posterior aspect the femur. A trial femoral component was placed. The tibial tray was pinned in maximum external rotation and the drill and stem punch were used to create defect in proximal tibia for the tibial tray. The knee was then trialed and the 10 mm insert fit most appropriately. Attention drawn the patella. The patella was cleaned of all soft tissues. Patella thickness measured 22 mm in thickness was cut down to 14. Was sized to a size 31 patella. The lug holes were drilled for 31 patella. The lateral osteophytes removed. Patella button was placed. Knee was taken through range of motion and the patella tracked nicely with no thumbs test. Attention drawn to placing permanent components. Nupathe all trial components were removed. Bone plug was placed in the distal femur limit blood loss. Double batch Palacos G cement was mixed. Biomet Vanguard size 70 right posterior stabilized femoral component, size 71 tibial tray, 10 mm post stabilized polyethylene insert, and a 31 x 8 all poly patella was then cemented in place. New spreadout in full extension till cement hardened. Final cement check was then performed. The pericapsular tissues were injected with total of 100 cc of combination of 20 cc of Exparel, 30 cc normal saline, 50 cc of quarter percent Marcaine with epinephrine. Patient did receive 1 g tranexamic acid. The tourniquet was let down for a final tourniquet time 53 minutes. Hemostasis assured use electrocautery. Extensor mechanism then closed with combination 1 PDS suture and 1 Vicryl suture in a [id number] fashion. Extensor mechanism was checked and found to be intact through the subcutaneous tissues then closed with 2 Dexon suture in a buried interrupted fashion skin was closed skin fox. Leg was then cleaned and dried and a sterile dressing was Xeroform, 4 fours, sterile cast padding, Paul bandage were applied. Patient then transferred to the recovery room in stable condition. Patient tolerated the procedure well and there were no complications. Brijesh Morel, my physician state tested nursing assistant, was present for the entire procedure. His assistance was essential and required for appropriate patient positioning, prepping and draping, surgical exposure, performing the technical details of the operation, placement the implants, closure of the wound, and placement of the sterile bandage. I attest to the content of the Intraoperative Record and any orders documented therein. Any exceptions are noted below.
--- NOTE | 2023-04-17 13:07 | XRay Report ---
XR knee RT 1 or 2V routine CLINICAL HISTORY: Surgical Post Op TECHNIQUE: 2 views of the right knee were obtained. Comparison: Comparison is made to knee radiographs 02/26/2023 FINDINGS: Patient is status post total knee arthroplasty with expected postsurgical changes including soft tiss ue swelling and subcutaneous emphysema. No periarticular lucency or hardware fracture is seen. IMPRESSION: Expected postoperative appearance status post placement of total knee arthroplasty. ACT 112: Negative or not required by law. Electronically signed by: Quinten Delatorre M.D. 04/17/2023 1:05 PM
--- NOTE | 2023-04-17 13:34 | Anesthesiology Progress Note ---
Date of Service April 17, 2023 Anesthesia Post Procedure Vital Signs Vital Signs: Temp Pulse Pulse Resp BP Pulse Ox O2 Del Method 04/17/23 13:25 78 17 160/73 H 95 Room Air 04/17/23 13:15 36.4 C L 78 16 152/76 H 94 Room Air 04/17/23 13:05 85 20 136/69 95 Room Air 04/17/23 12:55 83 14 138/84 99 Oxymask 04/17/23 12:46 36.1 C L 86 12 159/67 H 99 Oxymask 04/17/23 09:09 36.8 C 69 20 167/86 H 96 Room Air O2 Flow Rate 04/17/23 13:25 04/17/23 13:15 04/17/23 13:05 04/17/23 12:55 8 04/17/23 12:46 8 04/17/23 09:09 Pain Intensity Right Knee: Pain Intensity: 3 Transfer of Care Handoff Completed per policy Notes Mental Status: alert / awake / arousable and participated in evaluation Patient Amnestic to Procedure: Yes Nausea / Vomiting: adequately controlled Pain: adequately controlled Airway Patency, RR, SpO2: stable & adequate BP & HR: stable & adequate Hydration State: stable & adequate Neuraxial Anesthesia: was administered and sensory block is resolving Anesthetic Complications: no major complications apparent and Pt Satisfied with anesthetic care
[2023-04-17] MEDS ORDERED: NALOXONE HCL 0.4 MG/1 ML VIAL/CARP IV PRN (14:25)
[2023-04-17] MEDS ORDERED: METOCLOPRAMIDE HCL INJ 5 MG/ML 2 ML VIAL IV PRN (14:25)
[2023-04-17] MEDS ORDERED: HYDROmorphone INJ 0.5 MG/0.5 ML SYR IV PRN (14:25)
[2023-04-17] MEDS ORDERED: ALUMINUM/MAGNESIUM SUSP 30 ML UDC PO PRN (14:25)
[2023-04-17] MEDS ORDERED: bisacodyL 10 MG SUPP PR PRN (14:25)
[2023-04-17] MEDS ORDERED: oxyCODONE HCL IR 5 MG TAB (IMMEDIATE RELEASE) PO PRN (14:25)
[2023-04-17] MEDS ORDERED: MAGNESIUM HYDROXIDE SUSP 30 ML UDC PO PRN (14:25)
[2023-04-17] MEDS: KETOROLAC TROMETHAMINE 15 MG/ML VIAL IV SCH ×2 (15:59→21:13)
[2023-04-17] MEDS: ACETAMINOPHEN 500 MG TAB PO SCH ×2 (15:59→21:12)
[2023-04-17] MEDS: SODIUM CHLORIDE 0.9% 1000ML 1,000 ML IV SCH (16:01)
[2023-04-17] MEDS: Scopolamine CHECK PATCH PLACEMENT SCH (16:35)
[2023-04-17] MEDS: ceFAZolin 2000MG 2,000 MG/15 ML SYR IV SCH (17:57)
[2023-04-17] MEDS: ASCORBIC ACID 500 MG TAB PO SCH (17:57)
[2023-04-17] MEDS ORDERED: TRANEXAMIC ACID / 0.7% NACL 1,000 MG/100 ML BAG IV SCH (18:45)
[2023-04-17] MEDS ORDERED: SENNA 8.6 MG TAB PO SCH (21:00)
[2023-04-17] MEDS: ASPIRIN 81 MG ECTAB PO SCH (21:12)
[2023-04-17] MEDS: DOCUSATE SODIUM 100 MG CAP PO SCH (21:13)
[2023-04-17] MEDS: SENNA 8.6 MG TAB PO SCH (21:13)
[2023-04-18] MEDS: SODIUM CHLORIDE 0.9% 1000ML 1,000 ML IV SCH (00:38)
[2023-04-18] MEDS: Scopolamine CHECK PATCH PLACEMENT SCH ×2 (01:33→08:04)
[2023-04-18] MEDS: KETOROLAC TROMETHAMINE 15 MG/ML VIAL IV SCH ×2 (03:01→09:12)
[2023-04-18] MEDS: ceFAZolin 2000MG 2,000 MG/15 ML SYR IV SCH (03:01)
[2023-04-18 07:40] LABS: Hematocrit (blood only) 31.1 % (37.0-47.0); Hemoglobin 10.5 g/dl (12.0-16.0); Mean Corpuscular Hemoglobin 30.2 pg (25.0-34.0); Mean Corpuscular Hgb Conc 33.8 g/dL (32.0-36.0); Mean Corpuscular Volume 89.4 fL (80.0-100.0); Mean Platelet Volume 9.7 fL (9.4-12.4); Platelet Count 343 K/uL (130-400); RDW Coefficient of Variation 13.6 % (11.5-14.5); RDW Standard Deviation 44.5 fL (36.4-46.3); Red Blood Count 3.48 M/uL (4.20-5.40); White Blood Count 18.04 K/ul (4.8-10.8)
[2023-04-18 07:59] LABS: BUN Creatinine Ratio 32.8 (10-20); Calcium 8.7 mg/dl (8.6-10.3); Creatinine Clr Calc Pharmacy 92.4 ml/min; Est GFR (African American) 103.9 ml/min; Est GFR (Non-African American) 89.7 ml/min; Potassium 4.5 mmol/L (3.5-5.1)
[2023-04-18] MEDS ORDERED: dexAMETHasone 10 MG in SYRINGE 0 ML IV SCH (08:00)
[2023-04-18] MEDS: ASCORBIC ACID 500 MG TAB PO SCH (08:02)
[2023-04-18] MEDS: ASPIRIN 81 MG ECTAB PO SCH (08:02)
[2023-04-18] MEDS: SENNA 8.6 MG TAB PO SCH (08:02)
[2023-04-18] MEDS: DOCUSATE SODIUM 100 MG CAP PO SCH (08:03)
[2023-04-18] MEDS: ACETAMINOPHEN 500 MG TAB PO SCH (08:03)
[2023-04-18] MEDS ORDERED: NON-FORMULARY MEDICATION (Multivitamin Tablet) PO SCH (09:00)
[2023-04-18] MEDS ORDERED: MULTIVITAMIN TAB PO SCH (09:00)
--- NOTE | 2023-04-18 09:06 | Orthopedic Progress Note ---
Date of Service April 18, 2023 Assessment & Plan (1) Status post right knee replacement: 68-year-old female postop day 1 from right knee replacement doing well. Pain is controlled. She is neurologically intact. Plan: 1 DVT prophylaxis including thigh-high teds, SCDs, aspirin twice a day. 2. PT OT. Weight-bear as tolerated right total knee protocol. 3. Pain control doing well with current pain regimen. 4. Disposition plan to discharge home with some home health later today. Subjective . 68-year-old female postop day 1 from right knee replacement. She is doing well. Had a pretty good evening. Pain is controlled. Denies any chest pain or shortness of breath. Hoping to go home. Review of Systems All systems reviewed & are unremarkable except as noted in HPI & below. Physical Exam . Physical exam shows a pleasant elderly female. She is in operative bedside chair just waiting to get gone. Examination the right leg reveals dressing cl gene dry and intact patient dorsiflex and plantarflex her foot appropriately. She is neurologically intact. She can do good straight leg raise. Respiratory normal respiratory effort, lungs clear to auscultation Cardiovascular RRR, no murmur, no edema Gastrointestinal (Abdomen) normal bowel sounds, soft, nontender, no hepatosplenomegaly Results & Data Results & Data Laboratory Results . Hemoglobin is 10.5. Hematocrit is 31.1. Electrolytes are stable. Diagnostic Findings . PG Care Time/CCT Total # of Minutes Spent Total Time Spent with Patient: Total time spent is greater than 50% in coordination of care (as documented) at patient's floor/unit and/or counseling patient: Coding Level of Care Code 25786 Post Operative Follow-Up Diagnoses Status post right knee replacement Z96.651
--- NOTE | 2023-04-26 08:07 | Discharge Summary ---
Date of Service April 26, 2023 Discharge Data Procedures Performed Operation Date: 04/17/23 10:20 Actual Procedures p Right Total Knee Arthroplasty(Right) - Abdiaziz Gunn MD Hospital Course (1) Status post right knee replacement: This is a 68 year old patient admitted on 04/17/23 and underwent total knee arthroplasty. She tolerated the procedure well and there were no complications. Transferred to the PACU post op and later to the orthopedic floor for further care. She was given ancef for antibiotic prophylaxis. She was also given LACEY stockings, SCDs, and aspirin for DVT prophylaxis. Hemoglobin, hematocrit, and vital signs were monitored during her hospital stay and remained stable. Did not require any blood transfusions. There were no complications during her hospital stay. By post op day #1 the patient was tolerating a regular diet, pain was reasonably controlled with oral pain medicine, and she was participating in physical therapy. On post op day #1 the patient was discharged home and set up with home health care. She was given printed discharge instructions including prescriptions for extra strength tylenol, aspirin, ketorolac, cefadroxil, zofran, senokot, and oxycodone. Continue physical therapy, weight bearing as tolerated. Continue LACEY stockings. Follow up approximately 2 weeks post op or sooner if there are problems or concerns. Coding Level of Care Code None Diagnoses Status post right knee replacement Z96.651
== END 2023-04-18 11:15 | disposition home health service (06) ==
LOC: ASU 08:27 → 3E 08:27